=== PATIENT | female | born 1975 | race Caucasian/White ===

== ENCOUNTER 2017-02-23 12:58 | Day surgery (SDC) | payer OTHER, BC ==
[2017-02-23] MEDS ORDERED: Lactated Ringers 1,000 ML IV SCH ×2 (13:00→15:15)
[2017-02-23] MEDS ORDERED: Ketorolac 30 MG/ML SDV IVPUSH ONE (14:00)
[2017-02-23] MEDS ORDERED: Lidocaine 0.5% 50 ML SDV ONE (14:00)
[2017-02-23] MEDS ORDERED: Midazolam 1 MG/ML 2 ML SDV IV ONE (14:00)
[2017-02-23] MEDS ORDERED: Propofol 200 MG/20 ML SDV IV ONE (14:00)
[2017-02-23] MEDS ORDERED: Bupivacaine 0.5% 30 ML SDV INJECT ONE (14:32)
[2017-02-23 15:03] VITALS: BP 118/85
[2017-02-23] MEDS ORDERED: traMADol 50 MG Tab PO PRN (15:09)
--- NOTE | 2017-02-23 22:58 | OR ---
DATE OF OPERATION: 02/23/2017 SURGEON: Jonatan Marie MD PREOPERATIVE DIAGNOSIS: Carpal tunnel syndrome, right wrist. POSTOPERATIVE DIAGNOSIS: Carpal tunnel syndrome, right wrist. PROCEDURE PERFORMED: Carpal tunnel release, right wrist. OPERATIVE NOTE: The patient was taken to the operating room and placed on the operating room table in a supine position. After appropriate anesthesia had been administered, the regional Benson block, the patient had a sterile ChloraPrep performed from the inferior margin of the tourniquet to the tip of the fingers. A sterile draping procedure was then carried out. The patient had a 1.5 inch skin incision made over the volar aspect of the right wrist. It crossed the distal crease at a 60-degree angle. Skin and subcutaneous tissues were carefully dissected through. The palmaris longus tendon was identified and retracted radially. The transverse volar carpal ligament was brought into view. A small incision was then made with a #15 blade knife and then with a Metzenbaum scissors in the upward proximal manner, the proximal portion of the ligament was then incised. We then reversed the direction of the scissors in the distal upward ulnar direction, slightly radial to the ring finger. We then proceeded to do a complete distal release. Significant tightening was noted in the carpal tunnel distally. There being no further constrictions, we then closed the incision with a 3-0 nylon and injected Marcaine and morphine. The small splint was applied after appropriate dressings had been positioned. The patient tolerated the procedure well. No complications were encountered. ESTIMATED BLOOD LOSS: 7 mL. COMPLICATIONS: None. /[id number] RAMAN/NATALIE
== END 2017-02-23 16:10 | disposition home or self-care (01) ==
LOC: FB.SDS 12:58
PROVIDERS: ATTEND Orthopaedic Surgery
PROC: 01N50ZZ Release Median Nerve, Open Approach (ICD-10-PCS; principal; 2017-02-23)
DX: G56.01 Carpal tunnel syndrome, right upper limb (principal); K21.9 Gastro-esophageal reflux disease without esophagitis; F17.200 Nicotine dependence, unspecified, uncomplicated; J45.909 Unspecified asthma, uncomplicated
CPT/HCPCS: 64721; 81025; J1885; J2250; J2704; J7120